=== PATIENT | female | born 1970 | race Two or more races ===

== ENCOUNTER 2022-06-10 14:24 | Inpatient (IN) | payer MEDICAID ==
[~2022-06-10] VITALS: Ht 152.4 cm; Wt 92.2 kg
[2022-06-10 15:47] LABS: Basophils # (auto) 0 10 ^3/uL (0-0.2); Basophils % (auto) 0.5 % (0.0-2.0); Eosinophils # (auto) 0.2 10 ^3/uL (0-0.8); Eosinophils % (auto) 2.5 % (0.0-7.0); Hematocrit 21.7 % (36.0-46.0); Hemoglobin 7.1 g/dL (12.2-16.2); Lymphocytes # (auto) 1.1 10 ^3/uL (0.4-5.4); Lymphocytes % (auto) 15.2 % (10.0-50.0); Mean Corpuscular Hemoglobin 26.3 pg (28.0-32.0); Mean Corpuscular Hgb Conc. 32.6 g/dL (32.0-36.0); Mean Corpuscular Volume 80.8 fL (80.0-100.0); Monocytes # (auto) 0.6 10 ^3/uL (0-1.3); Monocytes % (auto) 9.2 % (0.0-12.0); Neutrophils # (auto) 5.1 10 ^3/uL (1.6-8.6); Neutrophils % (auto) 72.6 % (37.0-80.0); Nucleated Red Blood Cells % 0.2 %; Red Blood Cells 2.69 10^6/uL (4.0-5.20); Red Cell Distribution Width 15.9 % (11.8-14.3)
[2022-06-10 16:08] LABS: Albumin 1.9 g/dL (3.4-5.0); Calcium 7.9 mg/dL (8.5-10.1); Potassium 5.2 mmol/L (3.5-5.1)
[2022-06-10] MEDS ORDERED: FUROSEMIDE 100 MG/10ML VIAL IV ONE (16:15)
[2022-06-10 16:16] LABS: Bilirubin, Total 0.2 mg/dL (0.2-1.0); Total Protein 7.5 g/dL (6.4-8.2)
[2022-06-10 17:24] LABS: Urine Bacteria FEW /hpf (None Seen); Urine Blood TRACE /uL (Negative); Urine Specific Gravity 1.017 (1.001-1.035); Urine WBC 5 /hpf (0 - 5)
[2022-06-10] MEDS ORDERED: DOCUSATE SOD 100 MG CAP PO PRN (18:30)
[2022-06-10] MEDS ORDERED: LORazepam 0.5 MG TAB PO PRN (18:30)
[2022-06-10] MEDS ORDERED: ACETAMINOPHEN 325 MG TAB PO PRN (18:30)
[2022-06-11] VITALS (7 sets, daily range): BP systolic 149–162; BP diastolic 58–93
[2022-06-11] MEDS: SODIUM CHLORIDE 0.9% 1,000 ML IV SCH ×2 (03:18→04:30)
[2022-06-11] MEDS: cefTRIAXone 1GM/50ML D5W 50 ML IV SCH ×2 (03:55→11:42)
[2022-06-11] MEDS: HYDROcodone-ACET 5/325MG TAB PO PRN ×3 (04:01→21:21)
[2022-06-11 05:58] LABS: Basophils # (auto) 0 10 ^3/uL (0-0.2); Basophils % (auto) 0.4 % (0.0-2.0); Eosinophils # (auto) 0.2 10 ^3/uL (0-0.8); Eosinophils % (auto) 2.3 % (0.0-7.0); Hematocrit 21.8 % (36.0-46.0); Lymphocytes # (auto) 1.1 10 ^3/uL (0.4-5.4); Lymphocytes % (auto) 13.4 % (10.0-50.0); Mean Corpuscular Hemoglobin 25.9 pg (28.0-32.0); Mean Corpuscular Hgb Conc. 31.7 g/dL (32.0-36.0); Mean Corpuscular Volume 81.7 fL (80.0-100.0); Monocytes # (auto) 0.7 10 ^3/uL (0-1.3); Monocytes % (auto) 9.2 % (0.0-12.0); Neutrophils # (auto) 6.1 10 ^3/uL (1.6-8.6); Neutrophils % (auto) 74.7 % (37.0-80.0); Nucleated Red Blood Cells % 0.1 %; Red Blood Cells 2.66 10^6/uL (4.0-5.20); Red Cell Distribution Width 15.9 % (11.8-14.3); White Blood Cell 8.1 10^3/uL (4.4-10.8)
[2022-06-11 06:00] LABS: Hemoglobin 6.9 g/dL (12.2-16.2)
[2022-06-11 06:18] LABS: Calcium 8.1 mg/dL (8.5-10.1)
[2022-06-11 06:21] LABS: BUN/Creatinine Ratio 31.4
[2022-06-11] MEDS ORDERED: FUROSEMIDE 40 MG/4 ML VIAL IV SCH (10:00)
[2022-06-11] MEDS ORDERED: SODIUM CHLORIDE 0.9% 1,000 ML IV SCH (12:30)
[2022-06-11 12:52] LABS: % Iron Saturation 8.2 % (15-50)
[2022-06-11] MEDS: MORPHINE SULFATE INJ 2 MG/ml SYRG IV PRN (16:26)
[2022-06-11] MEDS ORDERED: METO25TA93 PO (16:38)
[2022-06-11] MEDS ORDERED: NIFE60TA61 PO (16:38)
[2022-06-11] MEDS ORDERED: APIX5TAB PO (16:38)
[2022-06-11] MEDS ORDERED: LOSA-39 (16:38)
[2022-06-11] MEDS ORDERED: ISOS10TA2 PO (16:38)
[2022-06-11] MEDS ORDERED: METF-372 PO (16:38)
[2022-06-11] MEDS ORDERED: OMEP-260 PO (16:38)
[2022-06-11] MEDS ORDERED: FURO40TA4 PO (16:38)
[2022-06-11] MEDS ORDERED: ATOR40TA52 PO (16:38)
[2022-06-11] MEDS ORDERED: INSREG3 SC (16:38)
[2022-06-11] MEDS: METOPROLOL TARTRATE 50 MG TAB PO SCH (21:20)
[2022-06-12] MEDS: MORPHINE SULFATE INJ 2 MG/ml SYRG IV PRN ×3 (04:40→20:41)
[2022-06-12 05:01] VITALS: BP 165/95
[2022-06-12 05:46] LABS: Basophils # (auto) 0 10 ^3/uL (0-0.2); Basophils % (auto) 0.5 % (0.0-2.0); Eosinophils # (auto) 0.3 10 ^3/uL (0-0.8); Eosinophils % (auto) 4.2 % (0.0-7.0); Hematocrit 25.7 % (36.0-46.0); Hemoglobin 8.2 g/dL (12.2-16.2); Lymphocytes # (auto) 1.6 10 ^3/uL (0.4-5.4); Lymphocytes % (auto) 19.3 % (10.0-50.0); Mean Corpuscular Hemoglobin 25.1 pg (28.0-32.0); Mean Corpuscular Hgb Conc. 31.7 g/dL (32.0-36.0); Monocytes # (auto) 0.9 10 ^3/uL (0-1.3); Monocytes % (auto) 11.2 % (0.0-12.0); Neutrophils # (auto) 5.4 10 ^3/uL (1.6-8.6); Neutrophils % (auto) 64.8 % (37.0-80.0); Nucleated Red Blood Cells % 0.2 %; Red Blood Cells 3.26 10^6/uL (4.0-5.20); White Blood Cell 8.3 10^3/uL (4.4-10.8)
[2022-06-12 05:57] LABS: Potassium 4.7 mmol/L (3.5-5.1)
[2022-06-12 06:02] LABS: BUN/Creatinine Ratio 32.9; Calcium 8.1 mg/dL (8.5-10.1)
[2022-06-12 08:00] VITALS: BP 149/62
[2022-06-12 08:15] VITALS: BP 149/62
[2022-06-12] MEDS: METOPROLOL TARTRATE 50 MG TAB PO SCH ×2 (08:33→20:40)
[2022-06-12] MEDS ORDERED: DEXTROSE (50%) 50ML SYRG IV PRN (09:30)
[2022-06-12] MEDS: cefTRIAXone 1GM/50ML D5W 50 ML IV SCH (10:32)
[2022-06-12] MEDS: FUROSEMIDE 40 MG/4 ML VIAL IV SCH ×2 (10:37→21:19)
[2022-06-12] MEDS: ACCU-CHEK COMFORT CURVE STRIP VI SCH ×3 (11:39→21:19)
[2022-06-12] MEDS: InsuLIN REG 1unit/0.01ml Soln (100units/ml) SC SCH ×3 (11:44→21:41)
[2022-06-12 12:43] VITALS: BP 141/64
[2022-06-12] MEDS ORDERED: cloNIDine HCL 0.1 MG TAB PO PRN (14:45)
[2022-06-12] MEDS ORDERED: amLODIPine BESYLATE 5 MG TAB PO ONE (14:45)
[2022-06-12] MEDS ORDERED: LOSARTAN POTASSIUM 50 MG TAB PO SCH (16:45)
[2022-06-12 17:00] VITALS: BP 160/90
[2022-06-12] MEDS: ONDANSETRON HCL 4 MG/2 ML VIAL IV PRN (19:57)
[2022-06-12 22:28] VITALS: BP 137/65
[2022-06-13 05:07] VITALS: BP 122/65
[2022-06-13 05:21] LABS: Basophils # (auto) 0 10 ^3/uL (0-0.2); Basophils % (auto) 0.4 % (0.0-2.0); Eosinophils # (auto) 0.3 10 ^3/uL (0-0.8); Hematocrit 25.9 % (36.0-46.0); Hemoglobin 8.2 g/dL (12.2-16.2); Lymphocytes # (auto) 1.6 10 ^3/uL (0.4-5.4); Lymphocytes % (auto) 16.4 % (10.0-50.0); Mean Corpuscular Hemoglobin 24.9 pg (28.0-32.0); Mean Corpuscular Hgb Conc. 31.6 g/dL (32.0-36.0); Mean Corpuscular Volume 78.7 fL (80.0-100.0); Monocytes % (auto) 10.9 % (0.0-12.0); Neutrophils # (auto) 6.6 10 ^3/uL (1.6-8.6); Neutrophils % (auto) 69.3 % (37.0-80.0); Red Cell Distribution Width 17.7 % (11.8-14.3); White Blood Cell 9.5 10^3/uL (4.4-10.8)
[2022-06-13 06:07] LABS: Calcium 8.2 mg/dL (8.5-10.1); Chloride 106 mmol/L (98-107); Potassium 4.6 mmol/L (3.5-5.1); Sodium 137 mmol/L (136-145)
[2022-06-13 06:13] LABS: Alanine Aminotransferase < 6 U/L (13-56); Albumin 1.6 g/dL (3.4-5.0); Alkaline Phosphatase 84 U/L (45-117); Anion Gap 3 (5-15); Aspartate Aminotransferase 11 U/L (15-37); BUN/Creatinine Ratio 26.5; Bilirubin, Total 0.3 mg/dL (0.2-1.0); Blood Urea Nitrogen 26 mg/dL (7-18); Carbon Dioxide 28 mmol/L (21-32); GFR African American 77 mL/min; GFR Non-African American 64 mL/min; Glucose 181 mg/dL (74-106); Total Protein 7.2 g/dL (6.4-8.2)
[2022-06-13] MEDS: MORPHINE SULFATE INJ 2 MG/ml SYRG IV PRN (06:14)
[2022-06-13] MEDS: ONDANSETRON HCL 4 MG/2 ML VIAL IV PRN (06:14)
[2022-06-13] MEDS: ACCU-CHEK COMFORT CURVE STRIP VI SCH ×4 (06:38→21:05)
[2022-06-13] MEDS: InsuLIN REG 1unit/0.01ml Soln (100units/ml) SC SCH ×4 (06:47→21:23)
[2022-06-13 09:00] VITALS: BP 147/85
[2022-06-13] MEDS: cefTRIAXone 1GM/50ML D5W 50 ML IV SCH (09:02)
[2022-06-13] MEDS: METOPROLOL SUCCINATE XL 50 MG TAB PO SCH (09:03)
[2022-06-13] MEDS: ISOSORBIDE DINITRATE 10 MG TAB PO SCH ×2 (09:04→21:04)
[2022-06-13] MEDS: LOSARTAN POTASSIUM 50 MG TAB PO SCH (09:04)
[2022-06-13] MEDS: FUROSEMIDE 40 MG/4 ML VIAL IV SCH ×2 (09:05→21:05)
[2022-06-13] MEDS: PANTOPRAZOLE 40 MG/10 ML VIAL INJ IV SCH ×2 (09:05→21:03)
[2022-06-13] MEDS ORDERED: amLODIPine BESYLATE 5 MG TAB PO SCH (10:00)
[2022-06-13] MEDS ORDERED: LOSARTAN POTASSIUM 50 MG TAB PO SCH (10:00)
[2022-06-13] MEDS ORDERED: NIFEdipine 10 MG CAP PO SCH (10:00)
[2022-06-13] MEDS: NIFEdipine 10 MG CAP PO SCH (10:14)
[2022-06-13] MEDS: HYDROcodone-ACET 5/325MG TAB PO PRN ×3 (10:14→21:04)
[2022-06-13 13:08] VITALS: BP 103/62
[2022-06-13 16:40] VITALS: BP 110/63
[2022-06-13] MEDS: ATORVASTATIN 20 MG TAB PO SCH (21:04)
[2022-06-13 22:00] VITALS: BP 116/61
[2022-06-14 05:04] VITALS: BP 111/58
[2022-06-14 05:54] LABS: Basophils # (auto) 0 10 ^3/uL (0-0.2); Basophils % (auto) 0.4 % (0.0-2.0); Eosinophils # (auto) 0.3 10 ^3/uL (0-0.8); Lymphocytes # (auto) 1.2 10 ^3/uL (0.4-5.4); Monocytes # (auto) 0.7 10 ^3/uL (0-1.3)
[2022-06-14 05:58] LABS: Eosinophils % (auto) 3.6 % (0.0-7.0); Hematocrit 25.8 % (36.0-46.0); Hemoglobin 8.2 g/dL (12.2-16.2); Mean Corpuscular Hemoglobin 25.1 pg (28.0-32.0); Mean Corpuscular Hgb Conc. 31.9 g/dL (32.0-36.0); Mean Corpuscular Volume 78.6 fL (80.0-100.0); Monocytes % (auto) 7.4 % (0.0-12.0); Neutrophils # (auto) 7.4 10 ^3/uL (1.6-8.6); Neutrophils % (auto) 76.6 % (37.0-80.0); Red Blood Cells 3.28 10^6/uL (4.0-5.20); Red Cell Distribution Width 17.3 % (11.8-14.3); White Blood Cell 9.6 10^3/uL (4.4-10.8)
[2022-06-14 06:22] LABS: Potassium 4.5 mmol/L (3.5-5.1)
[2022-06-14 06:28] LABS: Albumin 1.6 g/dL (3.4-5.0); BUN/Creatinine Ratio 22.9; Calcium 8.1 mg/dL (8.5-10.1)
[2022-06-14 06:31] LABS: Bilirubin, Total 0.3 mg/dL (0.2-1.0); Total Protein 7.4 g/dL (6.4-8.2)
[2022-06-14] MEDS: HYDROcodone-ACET 5/325MG TAB PO PRN ×3 (06:33→18:26)
[2022-06-14] MEDS: ACCU-CHEK COMFORT CURVE STRIP VI SCH ×4 (06:33→21:53)
[2022-06-14] MEDS: InsuLIN REG 1unit/0.01ml Soln (100units/ml) SC SCH ×4 (06:59→21:57)
[2022-06-14 08:00] VITALS: BP 107/59
[2022-06-14 08:11] LABS: Folate (Folic Acid) 4.78 ng/mL (5.38-24)
[2022-06-14 09:00] VITALS: BP 107/59
[2022-06-14] MEDS: PANTOPRAZOLE 40 MG/10 ML VIAL INJ IV SCH ×2 (10:12→21:48)
[2022-06-14] MEDS: LOSARTAN POTASSIUM 50 MG TAB PO SCH (10:14)
[2022-06-14] MEDS: cefTRIAXone 1GM/50ML D5W 50 ML IV SCH (10:14)
[2022-06-14] MEDS: FUROSEMIDE 40 MG/4 ML VIAL IV SCH ×2 (10:15→21:48)
[2022-06-14] MEDS: ISOSORBIDE DINITRATE 10 MG TAB PO SCH ×2 (10:15→21:49)
[2022-06-14] MEDS: NIFEdipine 10 MG CAP PO SCH (10:16)
[2022-06-14] MEDS: METOPROLOL SUCCINATE XL 50 MG TAB PO SCH (10:18)
[2022-06-14 12:30] VITALS: BP 110/63
[2022-06-14] MEDS: ONDANSETRON HCL 4 MG/2 ML VIAL IV PRN ×2 (15:40→19:57)
[2022-06-14 16:49] VITALS: BP 125/72
[2022-06-14] MEDS: ATORVASTATIN 20 MG TAB PO SCH (21:49)
[2022-06-14 22:00] VITALS: BP 107/61
[2022-06-15] VITALS (10 sets, daily range): BP systolic 93–120; BP diastolic 48–74
[2022-06-15] MEDS: ACCU-CHEK COMFORT CURVE STRIP VI SCH ×4 (05:58→22:00)
[2022-06-15 06:08] LABS: Basophils # (auto) 0 10 ^3/uL (0-0.2); Basophils % (auto) 0.5 % (0.0-2.0); Hemoglobin 7.4 g/dL (12.2-16.2); Monocytes # (auto) 0.9 10 ^3/uL (0-1.3); Neutrophils # (auto) 6.8 10 ^3/uL (1.6-8.6); Nucleated Red Blood Cells % 0.1 %; White Blood Cell 9.2 10^3/uL (4.4-10.8)
[2022-06-15 06:11] LABS: Eosinophils # (auto) 0.4 10 ^3/uL (0-0.8); Eosinophils % (auto) 4.1 % (0.0-7.0); Lymphocytes # (auto) 1.1 10 ^3/uL (0.4-5.4); Lymphocytes % (auto) 11.7 % (10.0-50.0); Mean Corpuscular Hemoglobin 25.3 pg (28.0-32.0); Mean Corpuscular Hgb Conc. 32.2 g/dL (32.0-36.0); Mean Corpuscular Volume 78.7 fL (80.0-100.0); Monocytes % (auto) 9.8 % (0.0-12.0); Neutrophils % (auto) 73.9 % (37.0-80.0); Red Blood Cells 2.92 10^6/uL (4.0-5.20)
[2022-06-15] MEDS: InsuLIN REG 1unit/0.01ml Soln (100units/ml) SC SCH ×4 (06:11→22:03)
[2022-06-15 06:27] LABS: Potassium 4.5 mmol/L (3.5-5.1)
[2022-06-15 06:35] LABS: Albumin 1.6 g/dL (3.4-5.0); BUN/Creatinine Ratio 23.8; Bilirubin, Total 0.2 mg/dL (0.2-1.0); Calcium 8.2 mg/dL (8.5-10.1); Total Protein 7.4 g/dL (6.4-8.2)
[2022-06-15] MEDS: PANTOPRAZOLE 40 MG/10 ML VIAL INJ IV SCH ×2 (09:44→23:20)
[2022-06-15] MEDS: ONDANSETRON HCL 4 MG/2 ML VIAL IV PRN (09:44)
[2022-06-15] MEDS: FUROSEMIDE 40 MG/4 ML VIAL IV SCH ×2 (09:45→22:00)
[2022-06-15] MEDS: cefTRIAXone 1GM/50ML D5W 50 ML IV SCH (09:45)
[2022-06-15] MEDS: FOLIC ACID 1 MG TAB PO SCH (09:46)
[2022-06-15] MEDS: NIFEdipine 10 MG CAP PO SCH (09:46)
[2022-06-15] MEDS: HYDROcodone-ACET 5/325MG TAB PO PRN ×2 (09:46→17:10)
[2022-06-15] MEDS: LOSARTAN POTASSIUM 50 MG TAB PO SCH (09:47)
[2022-06-15] MEDS: ISOSORBIDE DINITRATE 10 MG TAB PO SCH ×2 (09:47→21:59)
[2022-06-15] MEDS: METOPROLOL SUCCINATE XL 50 MG TAB PO SCH (09:48)
[2022-06-15] MEDS: ATORVASTATIN 20 MG TAB PO SCH (21:59)
[2022-06-16 05:00] VITALS: BP 139/88
[2022-06-16 05:54] LABS: Basophils # (auto) 0 10 ^3/uL (0-0.2); Basophils % (auto) 0.4 % (0.0-2.0); Eosinophils # (auto) 0.3 10 ^3/uL (0-0.8); Eosinophils % (auto) 5.3 % (0.0-7.0); Hematocrit 28.9 % (36.0-46.0); Hemoglobin 9.3 g/dL (12.2-16.2); Lymphocytes # (auto) 1.4 10 ^3/uL (0.4-5.4); Lymphocytes % (auto) 21.3 % (10.0-50.0); Mean Corpuscular Hemoglobin 25.6 pg (28.0-32.0); Mean Corpuscular Hgb Conc. 32.3 g/dL (32.0-36.0); Mean Corpuscular Volume 79.2 fL (80.0-100.0); Monocytes # (auto) 0.7 10 ^3/uL (0-1.3); Monocytes % (auto) 10.4 % (0.0-12.0); Neutrophils # (auto) 4.1 10 ^3/uL (1.6-8.6); Neutrophils % (auto) 62.6 % (37.0-80.0); Nucleated Red Blood Cells % 0.1 %; Red Blood Cells 3.65 10^6/uL (4.0-5.20); Red Cell Distribution Width 17.5 % (11.8-14.3); White Blood Cell 6.5 10^3/uL (4.4-10.8)
[2022-06-16 06:14] LABS: Albumin 1.7 g/dL (3.4-5.0); Calcium 8.4 mg/dL (8.5-10.1); Potassium 4.5 mmol/L (3.5-5.1)
[2022-06-16] MEDS: ACCU-CHEK COMFORT CURVE STRIP VI SCH ×3 (06:18→17:00)
[2022-06-16 06:19] LABS: Bilirubin, Total 0.5 mg/dL (0.2-1.0); Total Protein 7.8 g/dL (6.4-8.2)
[2022-06-16] MEDS: HYDROcodone-ACET 5/325MG TAB PO PRN ×3 (06:20→15:06)
[2022-06-16] MEDS: InsuLIN REG 1unit/0.01ml Soln (100units/ml) SC SCH ×3 (06:20→17:00)
[2022-06-16 08:00] VITALS: BP 144/83
[2022-06-16 08:56] VITALS: BP 144/83
[2022-06-16] MEDS: cefTRIAXone 1GM/50ML D5W 50 ML IV SCH (10:17)
[2022-06-16] MEDS: PANTOPRAZOLE 40 MG/10 ML VIAL INJ IV SCH (10:17)
[2022-06-16] MEDS: LOSARTAN POTASSIUM 50 MG TAB PO SCH (10:18)
[2022-06-16] MEDS: FOLIC ACID 1 MG TAB PO SCH (10:18)
[2022-06-16] MEDS: FUROSEMIDE 40 MG/4 ML VIAL IV SCH (10:18)
[2022-06-16] MEDS: ISOSORBIDE DINITRATE 10 MG TAB PO SCH (10:19)
[2022-06-16] MEDS: METOPROLOL SUCCINATE XL 50 MG TAB PO SCH (10:19)
[2022-06-16] MEDS ORDERED: METH4PAK PO (10:36)
[2022-06-16] MEDS ORDERED: ALBUAER3 IN (10:36)
[2022-06-16] MEDS ORDERED: AZIT500T66 PO (10:36)
[2022-06-16] MEDS: NIFEdipine 10 MG CAP PO SCH (10:47)
[2022-06-16 13:00] VITALS: BP 102/60
[2022-06-16 17:22] VITALS: BP 116/80
== END 2022-06-16 19:07 | disposition home or self-care (01) | DRG 139 ==
LOC: ER 14:24 → OVERFLOW 18:32 → CENTRAL 06-11 15:59 → TELE-CENTR 06-12 15:39
PROVIDERS: ADMIT Hospitalist; ATTEND Family Medicine
PROC: 30233N1 Transfusion of Nonautologous Red Blood Cells into Peripheral Vein, Percutaneous Approach (ICD-10-PCS; principal; 2022-06-11)
DX: J18.9 Pneumonia, unspecified organism (principal); N17.0 Acute kidney failure with tubular necrosis; I50.43 Acute on chronic combined systolic (congestive) and diastolic (congestive) heart failure; J44.0 Chronic obstructive pulmonary disease with (acute) lower respiratory infection; D63.8 Anemia in other chronic diseases classified elsewhere; E11.22 Type 2 diabetes mellitus with diabetic chronic kidney disease; E11.65 Type 2 diabetes mellitus with hyperglycemia; Z20.822 Contact with and (suspected) exposure to COVID-19; E66.01 Morbid (severe) obesity due to excess calories; I13.0 Hypertensive heart and chronic kidney disease with heart failure and stage 1 through stage 4 chronic kidney disease, or unspecified chronic kidney disease; J44.1 Chronic obstructive pulmonary disease with (acute) exacerbation; G47.30 Sleep apnea, unspecified; E87.5 Hyperkalemia; N39.0 Urinary tract infection, site not specified; E78.00 Pure hypercholesterolemia, unspecified; N18.30 Chronic kidney disease, stage 3 unspecified; Z86.718 Personal history of other venous thrombosis and embolism; Z91.199 Patient's noncompliance with other medical treatment and regimen due to unspecified reason; Z68.39 Body mass index [BMI] 39.0-39.9, adult
CPT/HCPCS: 36415; 36600; 71045; 76775; 80048; 80053; 81001; 82270; 82306; 82607; 82728; 82746; 82805; 82962; 83540; 83550; 83605; 83735; 83880; 83970; 84100; 84484; 85025; 86141; 86850; 86900; 86901; 86920; 87040; 87081; 87086; 87426; 93005; 93306; 93970; 93971; C9113; G0378; J0696; J1815; J2405

== ENCOUNTER 2022-07-23 11:35 | Emergency (ER) | payer MEDICAID ==
[~2022-07-23] VITALS: Ht 152.4 cm; Wt 74.1 kg
[~2022-07-23 11:35] MED LIST: ALBUAER3 IN; APIX5TAB PO; ATOR40TA52 PO; AZIT500T66 PO; FURO40TA4 PO; INSREG3 SC; ISOS10TA2 PO; LOSA-39; METF-372 PO; METH4PAK PO; METO25TA93 PO; NIFE60TA61 PO; OMEP-260 PO
[2022-07-23 12:25] LABS: Eosinophils # (auto) 0.1 10 ^3/uL (0-0.8); Lymphocytes # (auto) 1.4 10 ^3/uL (0.4-5.4)
[2022-07-23 12:26] LABS: Basophils # (auto) 0 10 ^3/uL (0-0.2); Basophils % (auto) 0.3 % (0.0-2.0); Eosinophils % (auto) 1.2 % (0.0-7.0); Hemoglobin 10.4 g/dL (12.2-16.2); Lymphocytes % (auto) 13.7 % (10.0-50.0); Mean Corpuscular Hemoglobin 24.8 pg (28.0-32.0); Mean Corpuscular Hgb Conc. 31.6 g/dL (32.0-36.0); Mean Corpuscular Volume 78.5 fL (80.0-100.0); Monocytes # (auto) 0.7 10 ^3/uL (0-1.3); Monocytes % (auto) 7.2 % (0.0-12.0); Neutrophils % (auto) 77.6 % (37.0-80.0); Nucleated Red Blood Cells % 0.1 %; Red Cell Distribution Width 17.5 % (11.8-14.3); White Blood Cell 10.3 10^3/uL (4.4-10.8)
[2022-07-23] MEDS ORDERED: MECLIZINE HCL 25 MG TAB PO ONE (12:45)
[2022-07-23 12:48] LABS: Albumin 2.1 g/dL (3.4-5.0); Calcium 8.8 mg/dL (8.5-10.1); Potassium 4.2 mmol/L (3.5-5.1)
[2022-07-23 12:52] LABS: BUN/Creatinine Ratio 17.9 (10.0-20.0); Bilirubin, Total 0.4 mg/dL (0.2-1.0); Total Protein 9.2 g/dL (6.4-8.2)
[2022-07-23 14:00] LABS: Urine Bacteria NONE SEEN /hpf (None Seen); Urine Blood 1+ /uL (Negative); Urine Hyaline Cast FEW /lpf (0 - 2); Urine Specific Gravity 1.007 (1.001-1.035); Urine WBC 3 /hpf (0 - 5)
[2022-07-23] MEDS ORDERED: MECL12.514 PO (15:09)
[2022-07-23 15:28] VITALS: BP 107/70
== END 2022-07-23 15:29 | disposition home or self-care (01) ==
LOC: ER 11:35
DX: D64.9 Anemia, unspecified (principal); R42 Dizziness and giddiness; J44.9 Chronic obstructive pulmonary disease, unspecified; E11.9 Type 2 diabetes mellitus without complications; E78.5 Hyperlipidemia, unspecified; I10 Essential (primary) hypertension; Z88.6 Allergy status to analgesic agent
CPT/HCPCS: 36415; 80053; 81001; 84484; 85025; 93005; 99284; J8597

== ENCOUNTER 2022-08-06 17:17 | Inpatient (IN) | payer MEDICAID ==
[~2022-08-06] VITALS: Ht 152.4 cm; Wt 94.1 kg
[~2022-08-06 17:17] MED LIST changes: +MECL12.514 PO
[2022-08-06] MEDS ORDERED: SODIUM CHLORIDE 0.9% 1,000 ML IV ONE (18:00)
[2022-08-06 18:31] LABS: Basophils # (auto) 0 10 ^3/uL (0-0.2); Basophils % (auto) 0.4 % (0.0-2.0); Eosinophils # (auto) 0.1 10 ^3/uL (0-0.8); Eosinophils % (auto) 1.4 % (0.0-7.0); Hematocrit 29.8 % (36.0-46.0); Hemoglobin 9.6 g/dL (12.2-16.2); Lymphocytes # (auto) 1.3 10 ^3/uL (0.4-5.4); Lymphocytes % (auto) 20.7 % (10.0-50.0); Mean Corpuscular Hemoglobin 24.9 pg (28.0-32.0); Mean Corpuscular Hgb Conc. 32.2 g/dL (32.0-36.0); Mean Corpuscular Volume 77.3 fL (80.0-100.0); Monocytes # (auto) 0.7 10 ^3/uL (0-1.3); Monocytes % (auto) 11.3 % (0.0-12.0); Neutrophils # (auto) 4.1 10 ^3/uL (1.6-8.6); Neutrophils % (auto) 66.2 % (37.0-80.0); Red Blood Cells 3.86 10^6/uL (4.0-5.20); Red Cell Distribution Width 16.9 % (11.8-14.3); White Blood Cell 6.2 10^3/uL (4.4-10.8)
[2022-08-06 18:52] LABS: Albumin 1.9 g/dL (3.4-5.0); BUN/Creatinine Ratio 26.2 (10.0-20.0); Bilirubin, Total 0.3 mg/dL (0.2-1.0); Calcium 8.4 mg/dL (8.5-10.1); Total Protein 8.2 g/dL (6.4-8.2)
[2022-08-06] MEDS ORDERED: IOHEXOL 350 MG/ML 100ML IJ ONE (20:54)
[2022-08-06] MEDS ORDERED: ACETAMINOPHEN 325 MG TAB PO PRN (22:00)
[2022-08-06] MEDS ORDERED: InsuLIN REG 1unit/0.01ml Soln (100units/ml) SC SCH (22:00)
[2022-08-06] MEDS ORDERED: DEXTROSE (50%) 50ML SYRG IV PRN (22:00)
[2022-08-06] MEDS ORDERED: hydrALAZINE HCL 20 MG/ML VL IV PRN (22:00)
[2022-08-06] MEDS ORDERED: DOCUSATE SOD 100 MG CAP PO PRN (22:00)
[2022-08-06] MEDS ORDERED: ONDANSETRON HCL 4 MG/2 ML VIAL IV ONE (22:00)
[2022-08-06] MEDS ORDERED: HEPARIN DRIP/D5W 100UNITS/ML 250 ML IV SCH (22:00)
[2022-08-06] MEDS ORDERED: HYDROcodone-ACET 5/325MG TAB PO ONE (22:00)
[2022-08-06] MEDS ORDERED: ALBUMIN 25% 100 ML IV ONE (22:00)
[2022-08-06] MEDS ORDERED: SODIUM CHLORIDE 0.9% 1,000 ML IV SCH (22:00)
[2022-08-06] MEDS ORDERED: HYDROcodone-ACET 5/325MG TAB PO PRN (22:00)
[2022-08-06] MEDS ORDERED: HEPARIN SODIUM (PORCINE) 5000 UNITS/ML 1ML VIAL IV ONE (22:00)
[2022-08-06] MEDS ORDERED: MORPHINE SULFATE INJ 2 MG/ml SYRG IV PRN (22:30)
[2022-08-06] MEDS ORDERED: NITROGLYCERIN 0.4 MG SL TAB SL PRN (22:30)
[2022-08-06 22:34] LABS: Basophils # (auto) 0 10 ^3/uL (0-0.2); Basophils % (auto) 0.5 % (0.0-2.0); Eosinophils # (auto) 0.1 10 ^3/uL (0-0.8); Hematocrit 29.7 % (36.0-46.0); Hemoglobin 9.3 g/dL (12.2-16.2); Lymphocytes # (auto) 1.6 10 ^3/uL (0.4-5.4); Monocytes # (auto) 0.8 10 ^3/uL (0-1.3); Neutrophils # (auto) 4.2 10 ^3/uL (1.6-8.6); Red Blood Cells 3.83 10^6/uL (4.0-5.20); White Blood Cell 6.7 10^3/uL (4.4-10.8)
[2022-08-06 22:35] LABS: Eosinophils % (auto) 1.1 % (0.0-7.0); Lymphocytes % (auto) 23.7 % (10.0-50.0); Mean Corpuscular Hemoglobin 24.3 pg (28.0-32.0); Mean Corpuscular Hgb Conc. 31.3 g/dL (32.0-36.0); Mean Corpuscular Volume 77.5 fL (80.0-100.0); Monocytes % (auto) 11.9 % (0.0-12.0); Neutrophils % (auto) 62.8 % (37.0-80.0); Nucleated Red Blood Cells % 0.1 %; Red Cell Distribution Width 16.9 % (11.8-14.3)
[2022-08-06 22:52] LABS: INR 1.11 (0.9-1.15); Partial Thromboplastin Time 34.2 sec (24.6-33.4)
[2022-08-06] MEDS ORDERED: MORPHINE SULFATE 4 MG/ML SYR/VIAL IV ONE (23:30)
[2022-08-06] MEDS: ONDANSETRON HCL 4 MG/2 ML VIAL IV PRN (23:49)
[2022-08-07] MEDS: ACCU-CHEK COMFORT CURVE STRIP VI SCH ×5 (00:08→21:36)
[2022-08-07] MEDS: DOXYCYCLINE 100MG/250ML 250 ML IV SCH ×2 (01:22→09:52)
[2022-08-07 04:48] LABS: Basophils # (auto) 0 10 ^3/uL (0-0.2); Basophils % (auto) 0.3 % (0.0-2.0); Eosinophils # (auto) 0.1 10 ^3/uL (0-0.8); Hemoglobin 8.5 g/dL (12.2-16.2); Mean Corpuscular Hgb Conc. 33.2 g/dL (32.0-36.0); Mean Corpuscular Volume 75.8 fL (80.0-100.0); Monocytes # (auto) 0.8 10 ^3/uL (0-1.3)
[2022-08-07 04:52] LABS: Eosinophils % (auto) 1.7 % (0.0-7.0); Hematocrit 25.7 % (36.0-46.0); Lymphocytes # (auto) 2.2 10 ^3/uL (0.4-5.4); Lymphocytes % (auto) 35.3 % (10.0-50.0); Mean Corpuscular Hemoglobin 25.1 pg (28.0-32.0); Monocytes % (auto) 12.8 % (0.0-12.0); Neutrophils # (auto) 3.1 10 ^3/uL (1.6-8.6); Neutrophils % (auto) 49.9 % (37.0-80.0); Red Blood Cells 3.39 10^6/uL (4.0-5.20); Red Cell Distribution Width 17.1 % (11.8-14.3); White Blood Cell 6.2 10^3/uL (4.4-10.8)
[2022-08-07 05:05] LABS: Potassium 4.5 mmol/L (3.5-5.1)
[2022-08-07 05:15] LABS: BUN/Creatinine Ratio 31.4 (10.0-20.0); Bilirubin, Total 0.2 mg/dL (0.2-1.0); Calcium 8.6 mg/dL (8.5-10.1); Total Protein 7.9 g/dL (6.4-8.2)
[2022-08-07 05:49] LABS: Urine Bacteria NONE SEEN /hpf (None Seen); Urine Blood 1+ /uL (Negative); Urine Mucus FEW (None Seen); Urine Specific Gravity 1.022 (1.001-1.035); Urine WBC 9 /hpf (0 - 5)
[2022-08-07] MEDS: InsuLIN REG 1unit/0.01ml Soln (100units/ml) SC SCH ×3 (06:48→17:14)
[2022-08-07 07:41] LABS: INR 1.16 (0.9-1.15)
[2022-08-07 07:46] LABS: Partial Thromboplastin Time 135.7 sec (24.6-33.4)
[2022-08-07] MEDS ORDERED: FAMOTIDINE (10MG/ML) 2ML VL IV SCH (10:00)
[2022-08-07] MEDS ORDERED: HEPARIN DRIP/D5W 100UNITS/ML 250 ML IV SCH (10:30)
[2022-08-07 17:00] VITALS: BP 145/84
[2022-08-07] MEDS: ONDANSETRON HCL 4 MG/2 ML VIAL IV PRN (18:31)
[2022-08-07] MEDS: APIXABAN 5 MG TAB PO SCH (21:36)
[2022-08-07] MEDS: FAMOTIDINE 20 MG TAB PO SCH (21:36)
[2022-08-07] MEDS: MORPHINE SULFATE INJ 2 MG/ml SYRG IV PRN (21:37)
[2022-08-07 22:00] VITALS: BP 147/81
[2022-08-08 05:00] VITALS: BP 145/84
[2022-08-08] MEDS: ACCU-CHEK COMFORT CURVE STRIP VI SCH ×2 (06:05→11:21)
[2022-08-08] MEDS: InsuLIN REG 1unit/0.01ml Soln (100units/ml) SC SCH ×2 (06:06→11:24)
[2022-08-08 06:29] LABS: Basophils # (auto) 0 10 ^3/uL (0-0.2); Basophils % (auto) 0.3 % (0.0-2.0); Eosinophils # (auto) 0.2 10 ^3/uL (0-0.8); Neutrophils # (auto) 3.2 10 ^3/uL (1.6-8.6); Nucleated Red Blood Cells % 0.1 %
[2022-08-08 06:33] LABS: Eosinophils % (auto) 2.8 % (0.0-7.0); Hematocrit 27.4 % (36.0-46.0); Lymphocytes # (auto) 1.6 10 ^3/uL (0.4-5.4); Lymphocytes % (auto) 28.2 % (10.0-50.0); Mean Corpuscular Hgb Conc. 32.7 g/dL (32.0-36.0); Mean Corpuscular Volume 76.4 fL (80.0-100.0); Monocytes # (auto) 0.6 10 ^3/uL (0-1.3); Monocytes % (auto) 11.6 % (0.0-12.0); Neutrophils % (auto) 57.1 % (37.0-80.0); Red Blood Cells 3.59 10^6/uL (4.0-5.20); Red Cell Distribution Width 17.1 % (11.8-14.3); White Blood Cell 5.6 10^3/uL (4.4-10.8)
[2022-08-08 06:42] LABS: Calcium 8.7 mg/dL (8.5-10.1); Potassium 4.7 mmol/L (3.5-5.1)
[2022-08-08 06:44] LABS: BUN/Creatinine Ratio 20.8 (10.0-20.0); INR 1.17 (0.9-1.15); Partial Thromboplastin Time 37.3 sec (24.6-33.4)
[2022-08-08 08:40] VITALS: BP 165/86
[2022-08-08] MEDS: FAMOTIDINE 20 MG TAB PO SCH (10:01)
[2022-08-08] MEDS: APIXABAN 5 MG TAB PO SCH (10:01)
[2022-08-08] MEDS: MORPHINE SULFATE INJ 2 MG/ml SYRG IV PRN (12:12)
[2022-08-08 12:44] VITALS: BP 143/87
[2022-08-08] MEDS ORDERED: FERR1TAB8 PO (13:24)
[2022-08-08] MEDS ORDERED: DAPA1TAB4 PO (13:24)
[2022-08-08] MEDS ORDERED: ALBUAER3 IN (13:24)
[2022-08-08] MEDS ORDERED: INSU1INJ19 SC (13:24)
[2022-08-08] MEDS ORDERED: METOPROLOL SUCCINATE XL 50 MG TAB PO ONE (13:30)
[2022-08-08] MEDS ORDERED: METO25TA93 PO (15:42)
[2022-08-08] MEDS ORDERED: APIX5TAB PO (15:42)
[2022-08-08] MEDS ORDERED: LOSA-39 PO (15:42)
[2022-08-08] MEDS ORDERED: FURO40TA4 PO (15:42)
[2022-08-08] MEDS ORDERED: CARB6.5S44 OT (15:44)
[2022-08-08 16:13] VITALS: BP 140/85
[2022-08-08 17:00] VITALS: BP 140/85
[2022-08-08] MEDS ORDERED: ALBUTEROL SULF HFA 90MCG INH 200DOSE IN SCH (18:00)
[2022-08-08] MEDS ORDERED: APIXABAN 5 MG TAB PO SCH (22:00)
[2022-08-08] MEDS ORDERED: FERROUS SULFATE 325mg EC TAB PO SCH (22:00)
[2022-08-08] MEDS ORDERED: INSULIN LANTUS (GLARGINE) 1 /0.01ml (100units/ml) SC SCH (22:00)
[2022-08-08] MEDS ORDERED: metFORMIN HYDROCHLORIDE 500 MG TAB PO SCH (22:00)
[2022-08-09] MEDS ORDERED: ATORVASTATIN 20 MG TAB PO SCH (10:00)
[2022-08-09] MEDS ORDERED: FUROSEMIDE 40 MG TAB PO SCH (10:00)
[2022-08-09] MEDS ORDERED: METOPROLOL SUCCINATE XL 50 MG TAB PO SCH (10:00)
[2022-08-09] MEDS ORDERED: LOSARTAN POTASSIUM 50 MG TAB PO SCH (10:00)
[2022-08-09] MEDS ORDERED: OMEPRAZOLE 20MG/10ML ORAL SUSP PO SCH (10:00)
[2022-08-09] MEDS ORDERED: PANTOPRAZOLE 40 MG TAB PO SCH (10:00)
[2022-08-09] MEDS ORDERED: DAPAGLIFLOZIN PROPANEDIOL 5 MG PO SCH (10:00)
[2022-08-09 12:03] LABS: Hepatitis C Antibody Negative (Negative)
[2022-08-14] MEDS ORDERED: APIXABAN 5 MG TAB PO SCH (22:00)
== END 2022-08-08 17:10 | disposition home or self-care (01) | DRG 197 ==
LOC: ER 17:17 → TELE 22:26 → TELE-WESTW 08-07 15:10
PROVIDERS: ADMIT Nurse Practitioner Family; ATTEND Hospitalist
DX: I82.432 Acute embolism and thrombosis of left popliteal vein (principal); I11.9 Hypertensive heart disease without heart failure; E87.1 Hypo-osmolality and hyponatremia; E88.09 Other disorders of plasma-protein metabolism, not elsewhere classified; E11.9 Type 2 diabetes mellitus without complications; D64.9 Anemia, unspecified; Z20.822 Contact with and (suspected) exposure to COVID-19; J43.9 Emphysema, unspecified; Z79.01 Long term (current) use of anticoagulants; Z79.84 Long term (current) use of oral hypoglycemic drugs; Z79.899 Other long term (current) drug therapy; Z83.3 Family history of diabetes mellitus; R00.0 Tachycardia, unspecified
CPT/HCPCS: 36415; 70450; 71045; 71275; 80048; 80053; 81001; 82962; 83036; 83605; 83880; 84484; 85025; 85379; 85610; 85730; 86803; 87040; 87081; 87340; 87426; 87804; 93005; 93970; 96360; 97163; G0378; J1815; J2405; J3490; P9047